=== PATIENT | male | born 1965 | race American Indian/Alaskan Native ===

== ENCOUNTER 2020-09-05 00:09 | Emergency (ER) | payer SELFPAY ==
[2020-09-05] MEDS ORDERED: DIPHtheria,PERTUSSIS(ACELL),TETANUS VACCINE/PF 0.5 ML VIAL IM ONE (01:37)
[2020-09-05] MEDS ORDERED: HYDROcodone/ACETAMINOPHEN 5-325 MG TAB PO ONE (01:37)
[2020-09-05] MEDS ORDERED: ceFAZolin 1 GM VIAL IM STA (02:08)
[2020-09-05] MEDS ORDERED: LIDOCAINE (2%) 20 MG/1 ML VIAL 20 ML MDV INFILTRATI STA (02:08)
--- NOTE | 2020-09-05 02:15 | XRay Report ---
LEFT HAND 3 VIEWS INDICATION / CLINICAL INFORMATION: crush injury to hand (over 4th ad 5th metacarpal). COMPARISON: None available. FINDINGS: BONES/JOINT(S): There is a comminuted fracture of the proximal shaft of the little finger proximal ph alanx with volar apex angulation and slight dorsal displacement of the predominant distal fracture fr agment. No additional fractures are seen. SOFT TISSUES: No significant abnormality. ADDITIONAL FINDINGS: None. Signer Name: Coleman Adam MD Signed: 09/05/2020 2:11 AM Workstation Name: [id number]
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
[2020-09-05] MEDS ORDERED: SODIUM CHLORIDE IRRI 500 ML 500 ML IR ONE (02:54)
[2020-09-05] MEDS ORDERED: WATER FOR INJ Sterile (PF) 10 ML ONE (03:07)
[2020-09-05] MEDS ORDERED: SODIUM CHLORIDE 0.9% IRR 500 ML BOTTLE IR ONE (03:30)
[2020-09-05 04:05] VITALS: BP 134/91
== END 2020-09-05 03:45 | disposition home or self-care (01) ==
LOC: ED 00:09
DX: S61.421A Laceration with foreign body of right hand, initial encounter (principal); Z79.899 Other long term (current) drug therapy; W18.30XA Fall on same level, unspecified, initial encounter; Y93.89 Activity, other specified; Y92.89 Other specified places as the place of occurrence of the external cause; Y99.8 Other external cause status
CPT/HCPCS: 12001; 73130; 90471; 90715; 96372; 99283; J0690